=== PATIENT | male | born 1990 | race Caucasian/White ===

== ENCOUNTER 2024-05-30 17:23 | Emergency (ER) | payer OTHER ==
[2024-05-30 19:37] LABS: Absolute Lymphocytes (CBC) 0.5 K/uL (0.7-4.9); Absolute Monocytes 0.5 K/uL (0.1-1.3); Absolute Neutrophil 14.1 K/uL (1.8-8.0); Basophils % 0.2 % (0-1.3); Eosinophils % 0.1 % (0-4.4); Hematocrit 49.5 % (39.6-49.0); Hemoglobin 16.2 g/dL (13.6-17.9); MCH 29.9 pg (27.0-35.0); MCHC 32.8 g/dL (32.0-36.0); MCV 91.4 fL (80-100); Monocytes % 3.2 % (3.3-12.3); Neutrophils % 93.5 % (41.7-73.7); Platelets 224 thou/uL (152-406); RBC Red Blood Cell Count 5.42 M/uL (4.33-5.43); Red Cell Distribution Width 14.7 % (12.1-15.2)
[2024-05-30 19:52] LABS: Albumin 4.7 g/dL (3.4-5.0); Albumin/Globulin Ratio 1.2 (1.1-1.8); Anion Gap 9.8 mEq/L (5.0-15.0); Bilirubin Total 0.9 mg/dL (0.2-1.0); Potassium 3.8 mEq/L (3.5-5.1); Protein, Total 8.7 g/dL (6.4-8.2)
[2024-05-30 20:01] LABS: SARS-CoV-2 Antigen CONTROL BLUE LINE VIS/BG OK; SARS-CoV-2 Antigen Rapid Res Negative (Negative)
[2024-05-30] MEDS ORDERED: ONDANSETRON 4 MG/2 ML VIAL ONE (20:16)
[2024-05-30] MEDS ORDERED: NA CHLORIDE 0.9% 1,000 ML ONE (20:17)
--- NOTE | 2024-05-30 21:50 | RAD REPORT ---
EXAMINATION: CT ABDOMEN AND PELVIS WITH CONTRAST CLINICAL INDICATION: Male, 33 years old.NAUSEA / VOMITING TECHNIQUE: CT abdomen and pelvis was performed, after the administration of IV contrast, as per [facility] protocol. Axial, sagittal and coronal reconstructions were obtained. One or more of the following dose reduction techniques were used: Automated exposure control, adjustment of the mA and/o r kV according to patient size, and/or iterative reconstruction. Unless otherwise specified, incidental findings do not require dedicated imaging follow-up. [id number]. COMPARISON: No prior exam. FINDINGS: LOWER CHEST: The visualized lung bases are clear. LIVER: Normal in size and contour. No focal lesion. GALLBLADDER/BILE DUCT: No biliary ductal dilatation.? PANCREAS: No significant abnormality. SPLEEN: Normal size. No focal lesion. ADRENALS: Normal; no mass. KIDNEYS AND URETERS: Normal size and contour. No hydronephrosis. GASTROINTESTINAL TRACT: Stomach is non-dilated. Small bowel has normal course and caliber. No colonic wall thickening or pericolonic inflammatory changes. Normal appendix. PERITONEUM: No ascites. LYMPH NODES: No lymphadenopathy. ABDOMINAL AORTA AND OTHER VESSELS: Normal caliber aorta and IVC. URINARY BLADDER: Normal contour. REPRODUCTIVE ORGANS: No pathologic process MUSCULOSKELETAL: No acute or suspicious osseous abnormality. Bilateral pars defects at L5 grade 1 ant erolisthesis of L5 on S1. ADDITIONAL FINDINGS: None. IMPRESSION: No acute or significant abnormalities seen in the abdomen or pelvis. Normal appendix
--- NOTE | 2024-05-30 22:04 | ER ---
Nurse's Notes [facility] Name: Alejandro Villatoro Age: 33 yrs Sex: Male : 1990 Arrival Date: 05/30/2024 Time: 17:23 Bed DX3 Private MD: Diagnosis: Nausea with vomiting, unspecified;Diarrhea, unspecified Presentation: 05/30 17:35 Chief complaint: Patient states: Pt c/o nausea, vomiting, diarrhea since noon today. Pt tl4 is able to sip gatorade in triage. Coronavirus screen: diarrhea, nausea, vomiting. Ebola Screen: No symptoms or risks identified at this time. Initial Sepsis Screen: Does the patient meet any 2 criteria? No. Patient's initial sepsis screen is negative. Does the patient have a suspected source of infection? No. Patient's initial sepsis screen is negative. Risk Assessment: Do you want to hurt yourself or someone else? Patient reports no desire to harm self or others. Onset of symptoms was May 30, 2024 at 12:00. 17:35 Method Of Arrival: Ambulatory tl4 17:35 Acuity: LEVI 3 tl4 Triage Assessment: 17:37 General: Appears in no apparent distress. Behavior is calm, cooperative. Pain: Denies tl4 pain. EENT: No signs and/or symptoms were reported regarding the EENT system. Neuro: Level of Consciousness is awake, alert, obeys commands, Oriented to person, place, time, situation. Cardiovascular: Capillary refill < 3 seconds Patient's skin is warm and dry. Respiratory: Airway is patent Respiratory effort is even, unlabored, Respiratory pattern is regular, symmetrical. GI: Reports diarrhea, nausea, vomiting. : No signs and/or symptoms were reported regarding the genitourinary system. Derm: No signs and/or symptoms reported regarding the dermatologic system. Musculoskeletal: No signs and/or symptoms reported regarding the musculoskeletal system. Historical: - Allergies: 17:37 NSAIDS NON STEROIDAL ANTI INFLAMMATORY DRUG; tl4 - Home Meds: 17:37 None [Active]; tl4 - PMHx: 17:37 None; tl4 - PSHx: 17:37 None; tl4 - Immunization history:: Adult Immunizations unknown. - Infectious Disease History:: Denies. - Social history:: Smoking status: Patient denies any tobacco usage or history of. Screenin:07 [facility] ED Fall Risk Assessment (Adult) History of falling in the last 3 months, lg3 including since admission No falls in past 3 months (0 pts) Confusion or Disorientation No (0 pts) Intoxicated or Sedated No (0 pts) Impaired Gait No (0 pts) Mobility Assist Device Used No (0 pt) Altered Elimination No (0 pt) Score/Fall Risk Level 0 - 2 = Low Risk Oriented to surroundings, Maintained a safe environment, Educated pt \T\ family on fall prevention, incl call for assistance when getting out of bed, Assessed \T\ reinforced patient's understanding of fall precautions. Abuse screen: Denies threats or abuse. Denies injuries from another. Nutritional screening: No deficits noted. Tuberculosis screening: No symptoms or risk factors identified. Assessment: 22:07 General: Appears in no apparent distress. comfortable, Behavior is calm, cooperative. lg3 Pain: Denies pain. Neuro: No deficits noted. Stephenson Agitation-Sedation Scale (RASS): 0 - Alert and Calm Level of Consciousness is awake, alert, obeys commands, Oriented to person, place, time, situation. Cardiovascular: No deficits noted. Denies chest pain, shortness of breath, Capillary refill < 3 seconds Clubbing of nail beds is absent JVD is absent Patient's skin is warm and dry. Respiratory: No deficits noted. Airway is patent Respiratory effort is even, unlabored, Respiratory pattern is regular, symmetrical. GI: No deficits noted. Abdomen is round non-distended, Patient currently denies nausea, pain. : No signs and/or symptoms were reported regarding the genitourinary system. EENT: No deficits noted. No signs and/or symptoms were reported regarding the EENT system. Derm: No deficits noted. No signs and/or symptoms reported regarding the dermatologic system. Skin is intact, is healthy with good turgor, Skin is dry, Skin is normal, Skin temperature is warm. Musculoskeletal: No deficits noted. No signs and/or symptoms reported regarding the musculoskeletal system. Circulation, motion, and sensation intact. Range of motion: intact in all extremities. Vital Signs: 17:35 BP 131 / 95; Pulse 106; Resp 18; Temp 98.9(O); Pulse Ox 100% on R/A; Weight 68.04 kg; tl4 Height 5 ft. 3 in. ; 20:52 BP 127 / 71 LA Sitting (auto/reg); Pulse 110; Pulse Ox 99% on R/A; ty 20:53 BP 126 / 59 LA Supine (auto/reg); Pulse 100; Pulse Ox 100% on R/A; ty 20:54 BP 125 / 72 LA Standing (auto/reg); Pulse 115; Pulse Ox 100% on R/A; ty 22:07 BP 121 / 68; Pulse 97; Resp 18 S; Temp 98.9(O); Pulse Ox 99% on R/A; lg3 17:35 Body Mass Index 26.57 (68.04 kg, 160.02 cm) tl4 ED Course: 17:30 Patient arrived in ED. ra3 17:35 Fabian Blankenship PA is PHCP. cp 17:35 Alexis Abdi MD is Attending Physician. cp 17:37 Triage completed. tl4 17:38 Arm band placed on right wrist. tl4 19:31 Inserted saline lock: 20 gauge in right antecubital area, using aseptic technique. rv1 Blood collected. Flushed with 10 mL NS. 19:32 CBC with Diff Sent. rv1 19:32 CMP Sent. rv1 19:32 Lipase Sent. rv1 19:32 SARS RAPID Sent. rv1 19:32 Influenza Screen (a \T\ B) Sent. rv1 21:38 CT Abd/Pelvis - IV Contrast Only In Process Unspecified. EDMS 22:07 Patient has correct armband on for positive identification. lg3 22:07 No provider procedures requiring assistance completed. IV discontinued, intact, lg3 bleeding controlled, No redness/swelling at site. Pressure dressing applied. Administered Medications: 18:16 CANCELLED (Physician Discretion): ondansetron4 mg PO once cp 20:20 Drug: Ondansetron IVP 4 mg IVP once; over 2 minutes Route: IVP; Site: right antecubital;cg 22:10 Follow up: Response: No adverse reaction; Marked relief of symptoms lg3 20:20 Drug: NS 0.9% IV 1000 ml IV at 1 bolus Per protocol; to be given as a bolus over 60 cg minutes Route: IV; Rate: 1 bolus; Site: right antecubital; 22:10 Follow up: Response: No adverse reaction; IV Status: Completed infusion; IV Intake: lg3 1000ml Medication: 22:07 VIS not applicable for this client. lg3 Intake: 22:10 IV: 1000ml; Total: 1000ml. lg3 Outcome: 22:03 Discharge ordered by . cp 22:07 Discharged to home ambulatory, lg3 22:07 Condition: stable 22:07 Discharge instructions given to patient, Instructed on discharge instructions, follow up and referral plans. medication usage, Demonstrated understanding of instructions, follow-up care, medications, Prescriptions given X 2, 22:10 Patient left the ED. lg3 Signatures: Dispatcher [employer] EDMS Fabian Blankenship PA PA Regina Alford, RN RN Mari Jose RN RN lg3 Theresa Hernandez rv1 Erick Bolton RN RN tl4 Chantal Knutson ra3 Karlos Westbrook ty Corrections: (The following items were deleted from the chart) 20:55 20:53 BP 126 / 59 Supine L Arm; Pulse 100bpm; Pulse Ox 100% RA; ty ty
--- NOTE | 2024-05-30 22:04 | EDPHYS ---
Physician Documentation [facility] Name: Alejandro Villatoro Age: 33 yrs Sex: Male : 1990 Arrival Date: 05/30/2024 Time: 17:23 Bed DX3 Private MD: ED Physician Alexis Abdi HPI: 05/30 18:20 This 33 yrs old Male presents to ER via Ambulatory with complaints of Vomiting/Diarrhea.cp 18:20 The patient presents to the emergency department with nausea, that is moderate, cp vomiting, that is intermittent, diarrhea, that is continuous. Onset: The symptoms/episode began/occurred today, about noon. Patient reports he went for run this morning and symptoms started shortly after eating raw piece of cabbage from outdoor market. Historical: - Allergies: 17:37 NSAIDS NON STEROIDAL ANTI INFLAMMATORY DRUG; tl4 - Home Meds: 17:37 None [Active]; tl4 - PMHx: 17:37 None; tl4 - PSHx: 17:37 None; tl4 - Immunization history:: Adult Immunizations unknown. - Infectious Disease History:: Denies. - Social history:: Smoking status: Patient denies any tobacco usage or history of. ROS: 18:30 Constitutional: Negative for body aches, chills, fever, cp 18:30 Eyes: Negative for injury, pain, redness, and discharge, cp 18:30 ENT: Negative for drainage from ear(s), ear pain, sore throat, difficulty swallowing, difficulty handling secretions, 18:30 Cardiovascular: Negative for chest pain, 18:30 Respiratory: Negative for cough, shortness of breath, wheezing, 18:30 Abdomen/GI: Positive for abdominal pain, nausea, vomiting, and diarrhea, Negative for constipation, black/tarry stool, rectal bleeding, 18:30 Skin: Negative for rash, 18:30 Neuro: Negative for altered mental status, dizziness, headache, weakness, 18:30 All other systems are negative, Exam: 18:33 Constitutional: The patient appears in no acute distress, alert, awake, non-toxic, well cp developed, well nourished, uncomfortable, 18:33 Head/Face: Normocephalic, atraumatic. cp 18:33 Eyes: Periorbital structures: appear normal, Conjunctiva: normal, no exudate, no injection, Sclera: no appreciated abnormality, Lids and lashes: appear normal, bilaterally, 18:33 ENT: External ear(s): are unremarkable, Nose: is normal, Mouth: Lips: moist, Oral mucosa: pink and intact, moist, Posterior pharynx: Airway: no evidence of obstruction, patent, 18:33 Chest/axilla: Inspection: normal, 18:33 Cardiovascular: Rate: tachycardic, Rhythm: regular, 18:33 Respiratory: the patient does not display signs of respiratory distress, Respirations: normal, no use of accessory muscles, no retractions, labored breathing, is not present, Breath sounds: are clear throughout, no decreased breath sounds, no stridor, no wheezing, 18:33 Abdomen/GI: Inspection: abdomen appears normal, Bowel sounds: active, all quadrants, Palpation: soft, in all quadrants, mild abdominal tenderness, in all quadrants, rebound tenderness, is not appreciated, involuntary guarding, is not appreciated, 18:33 Back: pain, is absent, ROM is normal, 18:33 Skin: no rash present. 18:33 Neuro: Orientation: to person, place \T\ time. Mentation: is normal, Motor: moves all fours, strength is normal, Sensation: is normal, Vital Signs: 17:35 BP 131 / 95; Pulse 106; Resp 18; Temp 98.9(O); Pulse Ox 100% on R/A; Weight 68.04 kg; tl4 Height 5 ft. 3 in. ; 20:52 BP 127 / 71 LA Sitting (auto/reg); Pulse 110; Pulse Ox 99% on R/A; ty 20:53 BP 126 / 59 LA Supine (auto/reg); Pulse 100; Pulse Ox 100% on R/A; ty 20:54 BP 125 / 72 LA Standing (auto/reg); Pulse 115; Pulse Ox 100% on R/A; ty 22:07 BP 121 / 68; Pulse 97; Resp 18 S; Temp 98.9(O); Pulse Ox 99% on R/A; lg3 17:35 Body Mass Index 26.57 (68.04 kg, 160.02 cm) tl4 MDM: 17:41 Medical Screening Exam initiated cp 20:00 Differential diagnosis: gastritis, cholecystitis, pancreatitis, appendicitis, viral cp gastroenteritis, gastroenteritis. 22:02 Data reviewed: vital signs, nurses notes, lab test result(s), radiologic studies, CT cp scan, and as a result, I will discharge patient. 22:02 I considered the following discharge prescriptions or medication management in the emergency department Medications were administered in the Emergency Department. See MAR. Counseling: I had a detailed discussion with the patient and/or guardian regarding the historical points, exam findings, and any diagnostic results supporting the discharge/admit diagnosis, lab results, radiology results, to return to the emergency department if symptoms worsen or persist or if there are any questions or concerns that arise at home. Response to treatment: the patient's symptoms have markedly improved after treatment, and as a result, I will discharge patient. Special discussion: Based on the patient's Hx, exam, and Dx evaluation, there is no indication for emergent surgery or inpatient Tx. It is understood by the patient/guardian that if the Sx's persist or worsen they need to return immediately for re-evaluation. 05/30 18:15 Order name: Influenza Screen (a \T\ B); Complete Time: 21:10 05/30 18:15 Order name: SARS RAPID; Complete Time: 21:10 05/30 18:16 Order name: CBC with Diff; Complete Time: 21:10 05/30 18:16 Order name: CMP; Complete Time: 21:10 05/30 18:16 Order name: Lipase; Complete Time: 21:10 05/30 21:10 Order name: CT Abd/Pelvis - IV Contrast Only; Complete Time: 22:02 05/30 18:15 Order name: Orthostatics; Complete Time: 22:10 05/30 18:16 Order name: IV Saline Lock; Complete Time: 19:32 05/30 18:16 Order name: Labs collected and sent; Complete Time: 19:32 cp Administered Medications: 18:16 CANCELLED (Physician Discretion): ondansetron4 mg PO once cp 20:20 Drug: Ondansetron IVP 4 mg IVP once; over 2 minutes Route: IVP; Site: right antecubital;cg 22:10 Follow up: Response: No adverse reaction; Marked relief of symptoms lg3 20:20 Drug: NS 0.9% IV 1000 ml IV at 1 bolus Per protocol; to be given as a bolus over 60 cg minutes Route: IV; Rate: 1 bolus; Site: right antecubital; 22:10 Follow up: Response: No adverse reaction; IV Status: Completed infusion; IV Intake: lg3 1000ml Disposition Summary: 05/30/24 22:03 Discharge Ordered Notes: Location: Home cp Problem: new cp Symptoms: have improved cp Condition: Stable cp Diagnosis - Nausea with vomiting, unspecified cp - Diarrhea, unspecified cp Followup: cp - With: Private Physician - When: 2 - 3 days - Reason: Worsening of condition Discharge Instructions: - Discharge Summary Sheet cp - Food Choices to Help Relieve Diarrhea, Adult cp - Diarrhea, Adult cp - Nausea and Vomiting, Adult cp Forms: - Medication Reconciliation Form cp - Antibiotic Education cp - Prescription Opioid Use cp - Patient Portal Instructions cp - Leadership Thank You Letter cp Prescriptions: - Pepcid 20 mg Oral Tablet - take 1 tablet ORAL route every 12 hours for 10 days; 20 tablet; Refills: 0, cp Product Selection Permitted - Zofran 4 mg Oral Tablet - take 1 tablet ORAL route every 12 hours As needed; 20 tablet; Refills: 0, cp Product Selection Permitted Addendum: 06/01/2024 20:49 Co-signature as Attending Physician, Alexis Abdi MD I reviewed the patient's care r t provided by the Advanced Practice Provider and agree with the diagnosis and treatment plan. Signatures: Dispatcher [employer] EDFabian Kiran PA PA cp Regina Narayanan, Alexis Carmen RN, MD MD rt Erick Bolton RN RN tl4 Mari Jose RN lg3 Corrections: (The following items were deleted from the chart) 05/30 18:16 18:15 Ondansetron PO 4 mg PO once ordered. cp cp
[2024-05-30 22:15] VITALS: TEMP 98.9
[2024-05-30 22:20] VITALS: BP 121/68; O2SAT 99
== END 2024-05-30 22:10 | disposition home or self-care (01) ==
LOC: ER 17:23
DX: R11.2 Nausea with vomiting, unspecified (principal); R19.7 Diarrhea, unspecified; Z11.52 Encounter for screening for COVID-19
CPT/HCPCS: 96361; 85025; 36415; 83690; 80053; 87804 ×2; 74177; 96374; 99284; 87811; Q9967; J2405; J7030

== ENCOUNTER 2024-09-02 11:51 | Emergency (ER) | payer OTHER ==
--- NOTE | 2024-09-02 13:11 | RAD REPORT ---
EXAMINATION: CT LUMBAR SPINE WITHOUT CONTRAST CLINICAL INDICATION: Male, 33 years old. PAIN TECHNIQUE: Axial CT images were obtained through the lumbar spine in soft tissue and bone windows wit hout intravenous contrast. Coronal and Sagittal reformatted images were created from the data set. One or more of the following dose reduction techniques were used: Automated exposure control, adjustm ent of the mA and/ or kV according to patient size, and/or iterative reconstruction. Unless otherwise specified, incidental findings do not require dedicated imaging follow-up. COMPARISON: No prior exam. FINDINGS: For purposes of this dictation, it is assumed that there are 5 non rib-bearing lumbar type vertebrae, and the most caudal fully segmented lumbar vertebra is labeled L5. ALIGNMENT: There is evidence of mild anterolisthesis L5 on S1 with bilateral spondylolysis. BONES: No significant soft tissue abnormalities. No aggressive osseous lesions. DISCS: Disc spaces are largely maintained although slight thickening seen at L5-S1. LEVELS: Posterior disc bulging is present lower lumbar spine with asymmetric disc bulge towards the l eft at L5-S1 resulting in mild canal narrowing and bilateral exit foraminal narrowing, more severe on the left. SOFT TISSUE: No soft tissue abnormalities. IMPRESSION: There is moderately severe L5-S1 spondylosis as detailed. Further evaluation with nonemergent MRI lum bar spine would be recommended.
[2024-09-02 13:48] LABS: Absolute Eosinophils 0.1 K/uL (0-0.5); Absolute Monocytes 0.5 K/uL (0.1-1.3); Absolute Neutrophil 5.7 K/uL (1.8-8.0); Basophils % 0.3 % (0-1.3); Eosinophils % 1.1 % (0-4.4); Hematocrit 50.8 % (39.6-49.0); Hemoglobin 17.3 g/dL (13.6-17.9); Lymphocytes % 24.1 % (15.3-44.8); MCH 30.4 pg (27.0-35.0); MCHC 34.1 g/dL (32.0-36.0); MCV 89.4 fL (80-100); MPV 9.2 fL (7.6-11.3); Monocytes % 5.5 % (3.3-12.3); Platelets 234 thou/uL (152-406); RBC Red Blood Cell Count 5.68 M/uL (4.33-5.43); Red Cell Distribution Width 13.6 % (12.1-15.2)
[2024-09-02 13:52] LABS: Albumin 3.9 g/dL (3.4-5.0); Albumin/Globulin Ratio 0.9 (1.1-1.8); Anion Gap 6.9 mEq/L (5.0-15.0); Bilirubin Total 0.5 mg/dL (0.2-1.0); Globulin 4.2 g/dL (2.3-3.5); Potassium 3.9 mEq/L (3.5-5.1); Protein, Total 8.1 g/dL (6.4-8.2)
--- NOTE | 2024-09-02 14:59 | EDPHYS ---
Physician Documentation [facility] Name: Alejandro Villatoro Age: 33 yrs Sex: Male : 1990 Arrival Date: 09/02/2024 Time: 11:51 Bed 13 Private MD: ANGELO Physician Fabian Puentes HPI: 09/02 14:53 This 33 yrs old Male presents to ER via EMS with complaints of Back Pain. jessica 14:53 The patient presents with pain that is acute, with no known mechanism of injury, that jessica is chronic, and decreased range of motion. The symptoms are located in the low back, lumbar area and left low back. Onset: The symptoms/episode began/occurred 1 week(s) ago. The pain radiates to the left low back and right low back. Associated signs and symptoms: Pertinent positives: bladder incontinence. The problem was sustained old injury , . Modifying factors: The patient symptoms are alleviated by nothing, remaining still, the patient symptoms are aggravated by any movement, bending. Severity of symptoms: At their worst the symptoms were moderate, in the emergency department the symptoms are unchanged. The patient has experienced similar episodes in the past, several times. Historical: - Allergies: 12:15 NSAIDS NON STEROIDAL ANTI INFLAMMATORY DRUG; ll1 - Home Meds: 12:23 tizanidine oral [Active]; gabapentin oral [Active]; ll1 - PMHx: 12:23 None; ll1 - PSHx: 12:23 None; ll1 - Immunization history:: Adult Immunizations up to date. - Infectious Disease History:: Denies. - Social history:: Smoking status: Patient denies any tobacco usage or history of. - Family history:: not pertinent. ROS: 14:53 Constitutional: Negative for fever, chills, and weight loss, Eyes: Negative for injury, jessica pain, redness, and discharge, ENT: Negative for injury, pain, and discharge, Neck: Negative for injury, pain, and swelling, Cardiovascular: Negative for chest pain, palpitations, and edema, Respiratory: Negative for shortness of breath, cough, wheezing, and pleuritic chest pain, Abdomen/GI: Negative for abdominal pain, nausea, vomiting, diarrhea, and constipation, : Negative for injury, bleeding, discharge, and swelling, MS/Extremity: Negative for injury and deformity, Skin: Negative for injury, rash, and discoloration, Neuro: Negative for headache, weakness, numbness, tingling, and seizure, Psych: Negative for depression, anxiety, suicide ideation, homicidal ideation, and hallucinations, Allergy/Immunology: Negative for hives, rash, and allergies, Endocrine: Negative for neck swelling, polydipsia, polyuria, polyphagia, and marked weight changes, Hematologic/Lymphatic: Negative for swollen nodes, abnormal bleeding, and unusual bruising, 14:53 Back: Positive for decreased range of motion, pain at rest, pain with movement, radiated pain, of the left low back and right low back, Exam: 14:53 Constitutional: This is a well developed, well nourished patient who is awake, alert, jessica and in no acute distress. Head/Face: Normocephalic, atraumatic. Eyes: Pupils equal round and reactive to light, extra-ocular motions intact. Lids and lashes normal. Conjunctiva and sclera are non-icteric and not injected. Cornea within normal limits. Periorbital areas with no swelling, redness, or edema. ENT: Nares patent. No nasal discharge, no septal abnormalities noted. Tympanic membranes are normal and external auditory canals are clear. Oropharynx with no redness, swelling, or masses, exudates, or evidence of obstruction, uvula midline. Mucous membranes moist. Neck: Trachea midline, no thyromegaly or masses palpated, and no cervical lymphadenopathy. Supple, full range of motion without nuchal rigidity, or vertebral point tenderness. No Meningismus. Chest/axilla: Normal chest wall appearance and motion. Nontender with no deformity. No lesions are appreciated. Cardiovascular: Regular rate and rhythm with a normal S1 and S2. No gallops, murmurs, or rubs. Normal PMI, no JVD. No pulse deficits. Respiratory: Lungs have equal breath sounds bilaterally, clear to auscultation and percussion. No rales, rhonchi or wheezes noted. No increased work of breathing, no retractions or nasal flaring. Abdomen/GI: Soft, non-tender, with normal bowel sounds. No distension or tympany. No guarding or rebound. No evidence of tenderness throughout. Back: No spinal tenderness. No costovertebral tenderness. Full range of motion. Male : Normal genitalia with no discharge or lesions. Skin: Warm, dry with normal turgor. Normal color with no rashes, no lesions, and no evidence of cellulitis. MS/ Extremity: Pulses equal, no cyanosis. Neurovascular intact. Full, normal range of motion., bilateral aka Psych: Awake, alert, with orientation to person, place and time. Behavior, mood, and affect are within normal limits. 14:53 Neuro: Orientation: is normal, appropriate for stated age, no acute changes, Mentation: is normal, appropriate for stated age, no acute changes, Memory: is normal, appropriate for stated age, no acute changes, Cranial nerves: grossly normal, is grossly normal based on the patient's age, no acute changes, Cerebellar function: is grossly normal based on the patient's age, unable to test, for lower extremities secondary to pain, Vital Signs: 12:25 BP 129 / 87; Pulse 110; Resp 17; Temp 97; Pulse Ox 99% ; Weight 64.41 kg; Height 5 ft. ll1 3 in. ; Pain 10/10; 14:16 BP 137 / 99; Pulse 109; Resp 18; Pulse Ox 96% on R/A; ld1 14:28 BP 137 / 99; Pulse 106; Resp 18; Pulse Ox 99% on R/A; ld1 15:00 BP 124 / 91; Pulse 122; Resp 18; Pulse Ox 95% on R/A; ld1 16:00 BP 109 / 71; Pulse 94; Resp 18; Pulse Ox 94% on R/A; ld1 16:46 BP 119 / 92; Pulse 104; Resp 18; Pulse Ox 99% on R/A; ld1 17:00 BP 124 / 93; Pulse 113; Resp 18; Pulse Ox 99% on R/A; ld1 18:47 BP 114 / 82; Pulse 108; Resp 18; Pulse Ox 98% on R/A; ld1 19:10 BP 127 / 81; Pulse 108; Resp 18; Pulse Ox 98% on R/A; Pain 7/10; rg5 20:22 BP 124 / 86; Pulse 112; Resp 17; Pulse Ox 98% on R/A; Pain 2/10; rg5 12:25 Body Mass Index 25.15 (64.41 kg, 160.02 cm) ll1 12:25 Pain Scale: Adult ll1 19:10 Pain Scale: Adult rg5 20:22 Pain Scale: Adult rg5 Clark Coma Score: 14:53 Eye Response: spontaneous(4). Motor Response: obeys commands(6). Verbal Response: jessica oriented(5). Total: 15. MDM: 11:56 Medical Screening Exam initiated the [facility] 09/02 11:58 Order name: CBC with Diff; Complete Time: 14:40 the [facility] 09/02 11:58 Order name: Comprehensive Metabolic Panel; Complete Time: 14:40 the [facility] 09/02 11:58 Order name: CT Lumbar Spine Wo Con; Complete Time: 14:40 the [facility] 09/02 14:41 Order name: MRI Lumbar Spine wo Con jessica Administered Medications: 14:27 Drug: Ketorolac IVP 30 mg IVP once Route: IVP; Site: left antecubital; ld1 15:21 Follow up: Response: No adverse reaction ld1 14:27 Drug: Ondansetron IVP 4 mg IVP once; over 2 minutes Route: IVP; Site: left antecubital; ld1 15:21 Follow up: Response: No adverse reaction ld1 14:28 Drug: NS 0.9% IV 1000 ml IV at 1000 ml once; to be given as a bolus over 60 minutes ld1 Route: IV; Rate: 1000 ml; Site: left antecubital; 20:27 Follow up: IV Status: Completed infusion; IV Intake: 1000ml rg5 15:19 Drug: Decadron - Dexamethasone IVP 10 mg IVP once Route: IVP; Site: right antecubital; ld1 15:21 Follow up: Response: No adverse reaction ld1 15:20 Not Given (Other Intervention Used): [id number] mg PO once ld1 15:20 Drug: Diazepam IVP 10 mg IVP once {Note: Verbal order per Dr. Puentes.} Route: IVP; ld1 Site: right antecubital; 15:46 Follow up: Response: No adverse reaction ld1 19:59 Drug: fentaNYL (PF) IVP 25 mcg IVP once Route: IVP; Site: left forearm; rg5 20:26 Follow up: Response: No adverse reaction; Pain is decreased rg5 20:26 Not Given (Patient Refused): fentanyl (pf)25 mcg IVP once rg5 Disposition Summary: 09/02/24 14:58 Transfer Ordered Notes: Transfer Location: [facility] jessica Reason: Higher level of care jessica Condition: Stable jessica Problem: new jessica Symptoms: have improved jessica Accepting Physician: to neuro, at [facility] (09/02/24 20:27) rg5 Diagnosis - Radiculopathy, lumbosacral region - severe L5/S1, LEFT, PARS DEFECT, INTRACTABLE jessica PAIN Forms: - Medication Reconciliation Form jessica - SBAR form jessica Signatures: Dispatcher [employer] EDFabian Núñez MD MD cha Lewis, Lynsay RN RN ll1 Hui Nelson RN RN ld1 Catrachito Tiwari RN RN rg5 Corrections: (The following items were deleted from the chart) 12:23 PMHx: Hypertensive disorder; ll1 ll1 20:27 14:58 to neuro, at [facility] jessica rg5
--- NOTE | 2024-09-02 14:59 | ER ---
Nurse's Notes [facility] Name: Alejandro Villatoro Age: 33 yrs Sex: Male : 1990 Arrival Date: 09/02/2024 Time: 11:51 Bed 13 Private MD: Diagnosis: Radiculopathy, lumbosacral region-severe L5/S1, LEFT, PARS DEFECT, INTRACTABLE PAIN Presentation: 09/02 12:25 Chief complaint: Patient states: L lower back pain started 2-3 days ago. L5 disc ll1 problem. Coronavirus screen: Client denies travel out of the [place] in the last 14 days. At this time, the client does not indicate any symptoms associated with coronavirus-19. Ebola Screen: Patient denies travel to an Ebola-affected area in the 21 days before illness onset. Initial Sepsis Screen: Does the patient meet any 2 criteria? No. Patient's initial sepsis screen is negative. Does the patient have a suspected source of infection? No. Patient's initial sepsis screen is negative. Risk Assessment: Do you want to hurt yourself or someone else? Patient reports no desire to harm self or others. Onset of symptoms was August 31, 2024. 12:25 Method Of Arrival: EMS ll1 12:25 Acuity: LEVI 3 ll1 Triage Assessment: 12:25 General: Appears uncomfortable, Behavior is calm, cooperative, appropriate for age. ll1 Pain: Complains of pain in L lower back Quality of pain is described as aching. Musculoskeletal: Reports pain in L lower back. Historical: - Allergies: 12:15 NSAIDS NON STEROIDAL ANTI INFLAMMATORY DRUG; ll1 - Home Meds: 12:23 tizanidine oral [Active]; gabapentin oral [Active]; ll1 - PMHx: 12:23 None; ll1 - PSHx: 12:23 None; ll1 - Immunization history:: Adult Immunizations up to date. - Infectious Disease History:: Denies. - Social history:: Smoking status: Patient denies any tobacco usage or history of. - Family history:: not pertinent. Screenin:18 [facility] ED Fall Risk Assessment (Adult) History of falling in the last 3 months, ld1 including since admission No falls in past 3 months (0 pts) Confusion or Disorientation No (0 pts) Intoxicated or Sedated No (0 pts) Impaired Gait No (0 pts) Mobility Assist Device Used No (0 pt) Altered Elimination No (0 pt) Score/Fall Risk Level 0 - 2 = Low Risk Oriented to surroundings, Hourly rounding (assess needs \T\ fall precautionary measures) done. Abuse screen: Denies threats or abuse. Denies injuries from another. Nutritional screening: No deficits noted. Tuberculosis screening: No symptoms or risk factors identified. Assessment: 14:15 Reassessment: No changes from previously documented assessment. Patient and/or family jl7 updated on plan of care and expected duration. Pain level reassessed. 14:18 General: Appears in no apparent distress. uncomfortable, Behavior is calm, cooperative, ld1 appropriate for age. Pain: Complains of pain in back Pain does not radiate. Pain currently is 7 out of 10 on a pain scale. Quality of pain is described as throbbing, Pain began suddenly, Is continuous. Neuro: Level of Consciousness is awake, alert, obeys commands, Oriented to person, place, time, situation, Appropriate for age. Cardiovascular: Capillary refill < 3 seconds Patient's skin is warm and dry. Respiratory: Airway is patent Respiratory effort is even, unlabored. GI: Abdomen is flat, non-distended. : No signs and/or symptoms were reported regarding the genitourinary system. EENT: No signs and/or symptoms were reported regarding the EENT system. Derm: No signs and/or symptoms reported regarding the dermatologic system. Musculoskeletal: No signs and/or symptoms reported regarding the musculoskeletal system. 15:30 Reassessment: Patient appears in no apparent distress at this time. No changes from ld1 previously documented assessment. 17:09 Reassessment: Patient appears in no apparent distress at this time. No changes from ld1 previously documented assessment. Patient and/or family updated on plan of care and expected duration. Pain level reassessed. 18:47 Reassessment: Patient appears in no apparent distress at this time. No changes from ld1 previously documented assessment. Patient and/or family updated on plan of care and expected duration. Pain level reassessed. 19:10 Reassessment: Patient and/or family updated on plan of care and expected duration. Pain rg5 level reassessed. Patient is alert, oriented x 3, equal unlabored respirations, skin warm/dry/pink. General: Appears in no apparent distress. Behavior is calm, cooperative, appropriate for age. Pain: Complains of pain in back. Neuro: Level of Consciousness is awake, alert, Oriented to person, place, time, situation. Cardiovascular: Denies chest pain, Capillary refill < 3 seconds Patient's skin is warm and dry. Respiratory: Airway is patent Respiratory effort is even, unlabored, Breath sounds are clear. GI: Abdomen is flat, non-distended. : No signs and/or symptoms were reported regarding the genitourinary system. EENT: No signs and/or symptoms were reported regarding the EENT system. Derm: Skin is intact, Skin is dry, Skin is normal. Musculoskeletal: No signs and/or symptoms reported regarding the musculoskeletal system. Vital Signs: 12:25 BP 129 / 87; Pulse 110; Resp 17; Temp 97; Pulse Ox 99% ; Weight 64.41 kg; Height 5 ft. ll1 3 in. ; Pain 10/10; 14:16 BP 137 / 99; Pulse 109; Resp 18; Pulse Ox 96% on R/A; ld1 14:28 BP 137 / 99; Pulse 106; Resp 18; Pulse Ox 99% on R/A; ld1 15:00 BP 124 / 91; Pulse 122; Resp 18; Pulse Ox 95% on R/A; ld1 16:00 BP 109 / 71; Pulse 94; Resp 18; Pulse Ox 94% on R/A; ld1 16:46 BP 119 / 92; Pulse 104; Resp 18; Pulse Ox 99% on R/A; ld1 17:00 BP 124 / 93; Pulse 113; Resp 18; Pulse Ox 99% on R/A; ld1 18:47 BP 114 / 82; Pulse 108; Resp 18; Pulse Ox 98% on R/A; ld1 19:10 BP 127 / 81; Pulse 108; Resp 18; Pulse Ox 98% on R/A; Pain 7/10; rg5 20:22 BP 124 / 86; Pulse 112; Resp 17; Pulse Ox 98% on R/A; Pain 2/10; rg5 12:25 Body Mass Index 25.15 (64.41 kg, 160.02 cm) ll1 12:25 Pain Scale: Adult ll1 19:10 Pain Scale: Adult rg5 20:22 Pain Scale: Adult rg5 Ashley Coma Score: 14:53 Eye Response: spontaneous(4). Motor Response: obeys commands(6). Verbal Response: jessica oriented(5). Total: 15. ED Course: 11:54 Patient arrived in ED. im 11:56 Fabian Puentes MD is Attending Physician. jessica 12:15 Arm band placed on. ll1 12:26 Triage completed. ll1 12:50 CT Lumbar Spine Wo Con In Process Unspecified. EDMS 13:30 Comprehensive Metabolic Panel Sent. bc6 13:30 CBC with Diff Sent. bc6 13:30 Initial lab(s) drawn, by me, sent to lab. Inserted saline lock: 20 gauge in left bc6 forearm, using aseptic technique. Blood collected. Flushed with 10 mL NS. 14:15 Hui Nelson, AMMY is Primary Nurse. ld1 14:15 Patient placed in an exam room, on a stretcher. jl7 14:18 Patient has correct armband on for positive identification. Placed in gown. Bed in low ld1 position. Call light in reach. Side rails up X2. Pulse ox on. NIBP on. Door closed. Noise minimized. Warm blanket given. 14:18 No provider procedures requiring assistance completed. ld1 15:33 initiated transfer [facility]. bd 17:26 MRI Lumbar Spine wo Con In Process Unspecified. EDMS 19:10 Provided Education on: needs for transfer. rg5 20:25 Patient transferred, IV remains in place. rg5 Administered Medications: 14:27 Drug: Ketorolac IVP 30 mg IVP once Route: IVP; Site: left antecubital; ld1 15:21 Follow up: Response: No adverse reaction ld1 14:27 Drug: Ondansetron IVP 4 mg IVP once; over 2 minutes Route: IVP; Site: left antecubital; ld1 15:21 Follow up: Response: No adverse reaction ld1 14:28 Drug: NS 0.9% IV 1000 ml IV at 1000 ml once; to be given as a bolus over 60 minutes ld1 Route: IV; Rate: 1000 ml; Site: left antecubital; 20:27 Follow up: IV Status: Completed infusion; IV Intake: 1000ml rg5 15:19 Drug: Decadron - Dexamethasone IVP 10 mg IVP once Route: IVP; Site: right antecubital; ld1 15:21 Follow up: Response: No adverse reaction ld1 15:20 Not Given (Other Intervention Used): mg PO once ld1 15:20 Drug: Diazepam IVP 10 mg IVP once {Note: Verbal order per Dr. Puentes.} Route: IVP; ld1 Site: right antecubital; 15:46 Follow up: Response: No adverse reaction ld1 19:59 Drug: fentaNYL (PF) IVP 25 mcg IVP once Route: IVP; Site: left forearm; rg5 20:26 Follow up: Response: No adverse reaction; Pain is decreased rg5 20:26 Not Given (Patient Refused): fentanyl (pf)25 mcg IVP once rg5 Medication: 14:18 VIS not applicable for this client. ld1 Intake: 20:27 IV: 1000ml; Total: 1000ml. rg5 Outcome: 14:58 ER care complete, transfer ordered by MD. lopez 20:25 Transferred by ground EMS to [facility], rg5 20:25 Condition: stable 20:25 Instructed on the need for transfer, 20:27 Patient left the ED. rg5 Signatures: Dispatcher [employer] EDMS Billie Cabrera Corey, MD MD cha Leal, Jahala RN RN [email or web address] Gui Dias RN RN ll1 Hui Nelson RN RN ld1 Ambar Garsia Itzel im Gallardo, Rommel, RN RN rg5 Corrections: (The following items were deleted from the chart) 12:25 12:23 PMHx: Hypertensive disorder; ll1 ll1
[2024-09-02] MEDS ORDERED: DIAZEPAM 10 MG/2 ML INJ SYRINGE ONE (15:15)
[2024-09-02] MEDS ORDERED: dexAMETHasone 10 MG/ML VIAL ONE (15:15)
--- NOTE | 2024-09-02 17:39 | RAD REPORT ---
EXAMINATION: MRI LUMBAR SPINE WITHOUT CONTRAST CLINICAL INDICATION: PAIN TECHNIQUE: Multiplanar multisequence MR images were obtained of the lumbar spine WITHOUT intravenou s contrast. Unless otherwise specified, incidental findings do not require dedicated imaging follow-up. COMPARISON: Same date CT FINDINGS: For purposes of this dictation, it is assumed that there are 5 non rib-bearing lumbar type vertebrae, and the most caudal fully segmented lumbar vertebra is labeled L5. ALIGNMENT: 6 mm anterolisthesis L5 on S1. Suspected bilateral pars defects at this level. BONE: Vertebral bodies are normal in height. There is a normal marrow signal pattern. CORD: No abnormal signal in the cord. The conus medullaris terminates at a normal level. The nerve ro ots of the cauda equina appear normal. SOFT TISSUE: The included paraspinal soft tissues and retroperitoneal structures are grossly normal. EVALUATION OF THE INDIVIDUAL LEVELS: L1-2: Unremarkable. L2-3: Unremarkable. L3-4: Unremarkable. L4-5: Minimal posterior disc bulge asymmetric to the left. L5-S1: Anterolisthesis as detailed with left paracentral/foraminal disc protrusion measuring 5 mm. Th is results in left lateral recess narrowing and severe left-sided exit foraminal stenosis. Moderate right exit foraminal stenosis also present. IMPRESSION: L5-S1 spondylosis as detailed with bilateral spondylolysis and 6 mm anterolisthesis.
[2024-09-02] MEDS ORDERED: FENTANYL CITR 100 MCG/2 ML ONE (19:53)
[2024-09-02 20:45] VITALS: TEMP 97
[2024-09-02 20:59] VITALS: O2SAT 98
[2024-09-02 21:02] VITALS: BP 124/86
== END 2024-09-02 20:27 | disposition short-term general hospital (02) ==
LOC: ER 11:51
DX: M54.17 Radiculopathy, lumbosacral region (principal); M43.07 Spondylolysis, lumbosacral region; R32 Unspecified urinary incontinence
CPT/HCPCS: 85025; 36415; 80053; 72131; 72148; J3360; J3010; J1100